=== PATIENT | male | born 1950 | race Hispanic/Latino ===

== ENCOUNTER 2016-10-06 08:13 | Emergency (ER) | payer OTHER, MEDICARE ==
[2016-10-06 08:54] VITALS: RESP 18; TEMP 98.4; O2SAT 98; BMI 27.0
[2016-10-06] MEDS ORDERED: TDAP Vaccine 0.5 mL Syr IM ONE (09:01)
--- NOTE | 2016-10-06 09:17 | ED PDOC ---
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 Denies any other trauma or injury. Patient reports pain is localized, proximal to the wrist. Patient reports pain is better with rest, worse with movement. Time/Duration: 1-3 hours Symptom Onset: Sudden Symptom Course: Unchanged Associated Symptoms (Text): None Past Medical History - Provider Review Nursing Documentation Reviewed: Yes - Psychiatric Hx Substance Use: No - Surgical History Hx Musculoskeletal Surgery: Yes (index finger surgery) - Anesthesia Hx Anesthesia: Yes Hx Anesthesia Reactions: No Hx Malignant Hyperthermia: No Family/Social History - Physician Review Nursing Documentation Reviewed: Yes Family/Social History: Unknown Family HX Smoking Status: Former Smoker Hx Alcohol Use: Yes Frequency of alcohol use: Socially Hx Substance Use: No Allergies/Home Meds Allergies/Adverse Reactions: Allergies No Known Allergies Allergy (Verified 10/06/16 08:48) Review of Systems - Physician Review All systems were reviewed & negative as marked: Yes Physical Exam - Physical Exam Narrative Physical Exam (Text): - Review of Systems Constitutional: Normal. absent: Fatigue, Weight Change, Fevers Eyes: Normal ENT: Normal Respiratory: Normal absent: SOB, Cough, Sputum Cardiovascular: Normal absent: Chest pain, Palpitations, Syncope Gastrointestinal: Normal absent: Abdominal pain, Diarrhea, Nausea, Vomiting Genitourinary: Normal. absent: Dysuria, Frequency, Hematuria Musculoskeletal: Right forearm pain absent: Arthralgias, Back Pain, Neck Pain Skin: Normal Neurological: Normal absent: Focal Weakness Endocrine: Normal Hemo/Lymphatic: Normal Psychiatric: Normal - Physical exam Patient appears age appropriate, speaking full sentences without difficulty Head atraumatic. No nasal bone deformity or tenderness, no facial or jaw pain/ swelling. No neck midline tenderness, thoracic and lumbar spine with no midline tenderness. Pt moving b/l upper and lower extremities without difficulty, 5/5 strength, with full active and passive ROM (Except right upper extremity). Distal neurovasc fully intact. Abd soft/nt/nd, no hematomas, no peritoneal signs. Neg. pelvic rock. - Systems Exam Head: Present: Atraumatic, Normocephalic Pupils: Present: PERRL Extraocular Muscles: Present: EOMI Conjunctiva: Present: Normal Mouth: Present: Moist Mucous Membranes Neck: Present: Normal Range of Motion. No: MIDLINE TENDERNESS, Paraspinal Tenderness Respiratory/Chest: Present: Clear to Auscultation, Good Air Exchange. No: Respiratory Distress, Accessory Muscle Use, Tachypneic Cardiovascular: Present: Regular Rate and Rhythm, Normal S1, S2, Peripheral Pulses Present. No: Murmurs Abdomen: Present: Normal Bowel Sounds, No: Tenderness, Peritoneal Signs, Rebound, Guarding, Distention Back: Present: Normal Inspection. No: Midline Tenderness, Paraspinal Tenderness Lower Extremity: Present: Normal Inspection. No: Edema Neurological: Present: GCS=15, Speech Normal, cranial nerves II through XII fully intact with no cerebellar abnormality, neuro-sensory fully intact. No focal neurological deficits. Skin: Present: Warm, Dry, Normal Color. No: Rashes Lymphatic: Present: OX3, NI, NC Psychiatric: Present: Alert, Oriented x 3, Normal Insight, Normal Concentration Vital Signs Reviewed: Yes Vital Signs Temp Pulse Resp BP Pulse Ox 10/06/16 11:25 59 L 18 185/89 H 98 10/06/16 10:42 56 L 18 191/95 H 98 10/06/16 08:48 98.4 F 63 18 196/89 H 98 Temperature: Afebrile Blood Pressure: Hypertensive Pulse: Regular Respiratory Rate: Normal Appearance: Positive for: Well-Appearing, Non-Toxic, Comfortable Pain Distress: None Mental Status: Positive for: Alert and Oriented X 3 - Systems Exam Upper Extremity: Present: Other (Right shoulder and clavicle: No tenderness to palpation. Full active and passive ROM. Right elbow: Superficial abrasions. Full active and passive ROM. Right mid forearm: Tenderness and swelling. Right wrist: Full active and passive range of motion. No Snuff box tenderness. No pain with axial loading of the thumb. Distal neurovascuar fully intact. 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 On physical exam , patient has superficial abrasions in right elbow, tenderness and swelling to the right mid forearm. Differential Diagnosis include but are not limited to: Fracture vs sprain Plan: -- Morphine, Tdap -- X-rays of the right elbow, forearm, and wrist -- Reassess and disposition Progress Notes: 10/06/16 11:21 XRAY IMPRESSION (radiologist) There is a transverse minimally displaced and slightly angulated fracture of the distal radius splint applied distal neurovas. fully intact after splinting with improved pain patient instructed to f/u with system support specialist for further w/u pt states he feels comfortable being dc'd home [facility] outpatient f/u Pt states he understands to return to the ER right away for new or worsening symptoms or for inability to f/u with PMD or specialist as instructed. Patient states that he fully agrees with and understands discharge instructions. States that he agrees with the plan and disposition. Verbalized and repeated discharge instructions and plan. I have given the patient opportunity to ask any additional questions. Patient noted to be hypertensive. Patient asymptomatic. Instructed patient to follow up with PMD for further workup. Patient states he understands and agrees with plan. - RAD Interpretation Radiology Orders: 10/06/16 09:01 ELBOW RIGHT 3 VIEWS ROUTINE [RAD] Stat FOREARM RIGHT [RAD] Stat WRIST, RIGHT 3 VIEWS [RAD] Stat - Medication Orders Current Medication Orders: Discontinued Medications Morphine Sulfate (Morphine) 8 mg IM STAT STA Stop: 10/06/16 09:02 Last Admin: 10/06/16 09:14 Dose: 8 mg Tetanus/Reduced Diphtheria/Acell Pertussis (Boostrix Vaccine Inj) 0.5 ml IM .ONCE ONE Stop: 10/06/16 09:02 Last Admin: 10/06/16 09:11 Dose: 0.5 ml - Scribe Statement The provider has reviewed the documentation as recorded by the Rafia Lobo Provider Scribe Attestation: All medical record entries made by the Rafia were at my direction and personally dictated by me. I have reviewed the chart and agree that the record accurately reflects my personal performance of the history, physical exam, medical decision making, and the department course for this patient. I have also personally directed, reviewed, and agree with the discharge instructions and disposition. Disposition/Present on Arrival - Present on Arrival Any Indicators Present on Arrival: No History of DVT/PE: No History of Uncontrolled Diabetes: No Urinary Catheter: No History of Decub. Ulcer: No History Surgical Site Infection Following: None - Disposition Have Diagnosis and Disposition been Completed?: Yes Diagnosis: Forearm fracture Disposition: HOME/ ROUTINE Disposition Time: 11:24 Patient Plan: Discharge Condition: GOOD Discharge Instructions (ExitCare): Arm Fracture in Adults (ED), Wrist Fracture in Adults (ED) Additional Instructions: PLEASE RETURN TO THE EMERGENCY DEPARTMENT FOR NEW OR WORSENING SYMPTOMS. RETURN RIGHT AWAY IF YOU CANNOT FOLLOW UP WITH YOUR PRIMARY CARE DOCTOR, CLINIC, OR SPECIALIST IN 1-2 DAYS. RETURN TO THE ER RIGHT AWAY FOR NUMBNESS, TINGLING, INCREASE PAIN, DISCOLORATION , OR OTHER CONCERNS Prescriptions: oxyCODONE/Acetaminophen [Percocet 5/325 mg Tab] 1 ea PO Q6 PRN #12 tab PRN Reason: Pain, Moderate (4-7) Referrals: PCP,NO [Primary Care Provider] - Follow up with primary Jose Garcia DO [Staff Provider] - Follow up with primary Pa Rousseau MD [Staff Provider] - Follow up with primary Forms: WORK NOTE
--- NOTE | 2016-10-06 10:06 | RAD ---
PROCEDURE: Radiographs of the right elbow. HISTORY: fall COMPARISON: No prior. FINDINGS: BONES: Normal. No fracture. JOINTS: Normal. No osteoarthritis. SOFT TISSUES: Normal. JOINT EFFUSION: None. OTHER FINDINGS: None. IMPRESSION: Unremarkable radiographs of the right elbow.
--- NOTE | 2016-10-06 10:11 | RAD ---
PROCEDURE: Radiographs of the Right Forearm HISTORY: fall COMPARISON: None available. TECHNIQUE: Frontal and lateral views obtained. FINDINGS: BONES: There is a transverse minimally displaced and slightly angulated fracture of the distal radius JOINT SPACES: Unremarkable. OTHER FINDINGS: None. IMPRESSION: There is a transverse minimally displaced and slightly angulated fracture of the distal radius
--- NOTE | 2016-10-06 10:14 | RAD ---
PROCEDURE: Right Wrist Radiographs. HISTORY: fall COMPARISON: None. FINDINGS: BONES: There is a comminuted predominantly transverse fracture through the distal radius with minimal dorsal angulation. JOINTS: Normal. No dislocation. SOFT TISSUES: Normal. OTHER FINDINGS: None. IMPRESSION: There is a comminuted predominantly transverse fracture through the distal radius with minimal dorsal angulation.
[2016-10-06 11:25] VITALS: BP 185/89; PULSE 59
== END 2016-10-06 11:52 | disposition home or self-care (01) ==
LOC: ED 08:13
DX: S52.591A Other fractures of lower end of right radius, initial encounter for closed fracture (principal); W17.89XA Other fall from one level to another, initial encounter; Y93.89 Activity, other specified; Y92.89 Other specified places as the place of occurrence of the external cause; Z23 Encounter for immunization
CPT/HCPCS: 29240; 73080; 73090; 73110; 90471; 90715; 96372; 99285; J2270